=== PATIENT | female | born 2000 | race Caucasian/White ===

== ENCOUNTER 2021-05-09 21:08 | Emergency (ER) | payer OTHER ==
[~2021-05-09] VITALS: Ht 162.6 cm; Wt 82.0 kg
[2021-05-09 22:20] VITALS: BP 140/96
[2021-05-09] MEDS ORDERED: LIDOCAINE HCL 1% 20ML VIAL (Pyxis) INJ INFIL ONE (22:30)
[2021-05-09] MEDS ORDERED: ACETAMINOPHEN WITH CODEINE 300/30MG TABLET PO ONE (22:30)
[2021-05-09] MEDS ORDERED: BACITRACIN ZINC OINT UDPKT TOP ONE (22:30)
[2021-05-09] MEDS ORDERED: LIDOCAINE HCL 1% 10 MG/ML 10ML VIAL INJ NR (23:00)
[2021-05-09] MEDS ORDERED: BO1 TP (23:43)
[2021-05-09] MEDS ORDERED: IBUP-2029 MT (23:43)
== END 2021-05-10 00:22 | disposition home or self-care (01) ==
LOC: ER 21:08
DX: M79.644 Pain in right finger(s) (principal)
CPT/HCPCS: 11730; 73140; 99284; J3490